=== PATIENT | male | born 2000 | race Caucasian/White ===

== ENCOUNTER 2022-10-29 15:50 | Emergency (ER) | payer MEDICAID, SELFPAY ==
--- NOTE | 2022-10-29 16:27 | PC.NURSE ---
checked on pt his vital signs at this time is b/p-104/75 heart rate: 115 oxygen/ 100 room air
[2022-10-29 17:03] VITALS: BP 119/79; PULSE 96; RESP 17; TEMP 36.8; O2SAT 99
--- NOTE | 2022-10-29 17:04 | PC.NURSE ---
Pt states that he is feeling better after sitting and deep breathing.States he gets worked up over very little things. States he was at work when he couldn't get a deep cough and this caused him to panic and he couldn't get a deep breath. After sitting and being able to cough he was able to take a deep breath and helped to relax him. He takes buspar and Vistaril at home for anxiety but has stopped taking these daily. Denies any symptoms at this time and agreeable to coming back if symptoms return.
== END 2022-10-29 17:11 | disposition left against medical advice (07) ==
PROVIDERS: Emergency Provider Emergency Medicine; PCP Pediatrics
DX: Z53.21 Procedure and treatment not carried out due to patient leaving prior to being seen by health care provider (principal)
CPT/HCPCS: 99211